=== PATIENT | female | born 1965 | race Caucasian/White ===

== ENCOUNTER 2018-01-01 13:22 | Emergency (ER) | payer MEDICAID ==
[2018-01-01 14:07] VITALS: BP 137/81
[2018-01-01] MEDS ORDERED: Ketorolac 60 MG/2 ML SDV IM ONE (14:33)
--- NOTE | 2018-01-01 14:38 | EDM.PDOC ---
ED HPI GENERAL MEDICAL PROBLEM - General Chief Complaint: Lower Extremity Injury/Pain Stated Complaint: RIGHT KNEE INJURY, FALL Time Seen by Provider: 01/01/18 14:20 Source of Information: Reports: Patient History Limitations: Reports: No Limitations - History of Present Illness INITIAL COMMENTS - FREE TEXT/NARRATIVE: 52 yo female slipped on the ice today and injured her R knee. Says the knee flexed with a valgus stress on that knee. The injury was about an hour ago. Took nothing for the pain. Has not had trouble with that knee in the past. Was not able to bear weight before coming in to the ER. Has pain now mainly with flexion while sitting. Has not tried to bear weight since the initial attempt. 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) - Related Data Allergies Allergy/AdvReac Type Severity Reaction Status Date / Time No Known Allergies Allergy Verified 01/01/18 13:58 Home Meds: Home Meds Cyanocobalamin (Vitamin B12) [Vitamin B12] 1,000 mcg SUBCUT ASDIRECTED 06/23/15 [History] Ferrous Sulfate 325 mg PO DAILY 06/23/15 [History] Calcium Citrate 200 mg PO QID 09/24/15 [History] Cholecalciferol (Vitamin D3) [Vitamin D] 1,000 unit PO DAILY 09/24/15 [History] Cyanocobalamin (Vitamin B-12) [Vitamin B-12] 2,500 mcg SL DAILY 09/24/15 [ History] Cyanocobalamin/FA/Pyridoxine [B Complex-Folic Acid] 1 tab PO DAILY 09/24/15 [ History] Fluocinolone Acetonide [Synalar 0.01% Top Soln] 1 applic TOP DAILY 09/24/15 [ History] Multivitamin with Minerals [Multiple Vitamin] 1 tab PO BID 09/24/15 [History] Gabapentin [Neurontin] 1 tab PO TID 01/01/18 [History] Past Medical History HEENT History: Reports: Impaired Vision Cardiovascular History: Reports: Arrhythmia Gastrointestinal History: Reports: Hemorrhoids 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: Endocrine/Metabolic History: Reports: Obesity/BMI 30+ Other Endocrine/Metabolic History: hypoglycemic Hematologic History: Reports: Anemia, B12 Deficiency Other Dermatologic History: dermatitis - Infectious Disease History Infectious Disease History: Reports: Chicken Pox, Measles, Mumps - Past Surgical History HEENT Surgical History: Reports: Oral Surgery GI Surgical History: Reports: Bariatric Procedure Female Surgical History: Reports: Breast Biopsy Social & Family History - Tobacco Use Smoking Status *Q: Never Smoker Second Hand Smoke Exposure: No - Alcohol Use Days Per Week of Alcohol Use: 0 - Recreational Drug Use Recreational Drug Use: No Review of Systems - Review of Systems Review Of Systems: See Below Constitutional: Reports: No Symptoms Musculoskeletal: Reports: Joint Pain (R knee) Skin: Reports: No Symptoms Neurological: Reports: No Symptoms ED EXAM, GENERAL - Physical Exam Exam: See Below Exam Limited By: No Limitations General Appearance: Alert, WD/WN, No Apparent Distress, Obese Eye Exam: Bilateral Eye: Normal Inspection Ears: Normal External Exam, Normal Canal, Hearing Grossly Normal, Normal TMs Ear Exam: Bilateral Ear: Auricle Normal, Canal Normal Head: Atraumatic, Normocephalic Neck: Normal Inspection, Supple, Non-Tender Respiratory/Chest: No Accessory Muscle Use Cardiovascular: Regular Rate, Rhythm Extremities: Normal Inspection, Non-Tender (no palpable tenderness.), No Pedal Edema, Limited Range of Motion (can extend fully. No ligamentous laxity. No joint line tenderness. Flex/Ext with leg internally and externally rotated does not increase her pain. ). No: Normal Range of Motion (unable to fully flex at the knee) Neurological: Alert, Oriented, CN II-XII Intact, Normal Cognition, No Motor/ Sensory Deficits Psychiatric: Normal Affect, Normal Mood Skin Exam: Warm, Dry, Intact, Normal Color, No Rash Course - Vital Signs Text/Narrative:: No improvement with Toradol 60 mg IM Last Recorded V/S: Last Vital Signs Temp 36.4 C 01/01/18 14:05 Pulse 66 01/01/18 14:05 Resp 14 01/01/18 14:05 BP 137/81 01/01/18 14:05 Pulse Ox 98 01/01/18 14:05 - Orders/Labs/Meds Orders: Active Orders 24 hr Category Date Time Status Knee 3V Rt [CR] Stat Exams 01/01/18 15:30 Taken Meds: Medications Discontinued Medications Generic Name Dose Route Start Last Admin Trade Name Graciela PRN Reason Stop Dose Admin Ketorolac Tromethamine 60 mg 01/01/18 14:33 01/01/18 14:43 Toradol IM 01/01/18 14:34 60 mg ONETIME ONE Administration - Radiology Interpretation Free Text/Narrative:: R knee X-ray-? lateral tibial plateau fx, radiology reading pending. Departure - Departure Time of Disposition: 16:36 Disposition: Home, Self-Care 01 Clinical Impression: Tibial plateau fracture, right Qualifiers: Encounter type: initial encounter Fracture type: closed Qualified Code(s): S82.141A - Displaced bicondylar fracture of right tibia, initial encounter for closed fracture - Discharge Information Referrals: Js Bautista MD [Primary Care Provider] - Forms: ED Department Discharge - My Orders Last 24 Hours: My Active Orders 01/01/18 15:30 Knee 3V Rt [CR] Stat - Assessment/Plan Last 24 Hours: My Active Orders 01/01/18 15:30 Knee 3V Rt [CR] Stat
== END 2018-01-01 17:02 | disposition home or self-care (01) ==
LOC: JP.ED 13:22
DX: S82.141A Displaced bicondylar fracture of right tibia, initial encounter for closed fracture (principal); Z79.899 Other long term (current) drug therapy; W00.0XXA Fall on same level due to ice and snow, initial encounter
CPT/HCPCS: 73562; 96372; 99284; J1885

== ENCOUNTER 2022-09-15 06:07 | Day surgery (SDC) | payer MEDICAID ==
[2022-09-15] MEDS ORDERED: Midazolam 1 MG/ML 2 ML SDV ONE (07:00)
[2022-09-15] MEDS ORDERED: Propofol 200 MG/20 ML SDV ONE ×2 (07:00→07:47)
[2022-09-15] MEDS ORDERED: fentaNYL 50 MCG/ML SDV ONE (07:00)
[2022-09-15] MEDS ORDERED: Lactated Ringers 1,000 ML IV SCH (07:15)
[2022-09-15 09:05] VITALS: BP 156/91; PULSE 74
== END 2022-09-15 09:07 | disposition home or self-care (01) ==
LOC: JP.SDS 06:07
PROVIDERS: ATTEND Student in an Organized Health Care Education/Training Program
DX: Z12.11 Encounter for screening for malignant neoplasm of colon (principal); Z79.899 Other long term (current) drug therapy
CPT/HCPCS: 45378; J2250; J2704; J3010; J7120

== ENCOUNTER 2024-07-09 14:30 | Emergency (ER) | payer SELFPAY ==
[2024-07-09 14:37] VITALS: BP 146/86; PULSE 107
== END 2024-07-09 16:00 | disposition left against medical advice (07) ==
LOC: JP.ED 14:30
DX: Z53.21 Procedure and treatment not carried out due to patient leaving prior to being seen by health care provider (principal)